=== PATIENT | female | born 1980 | race Caucasian/White ===

== ENCOUNTER 2019-06-28 16:19 | Observation (INO) ==
[2019-06-28 16:48] LABS: BILIRUBIN URINE NEGATIVE (NEGATIVE); BLOOD URINE 3+ (NEGATIVE); GLUCOSE URINE NEGATIVE (NEGATIVE); KETONE URINE 3+(Large) mg/dL (NEGATIVE); LEUKOCYTES URINE TRACE (NEGATIVE); NITRITE URINE NEGATIVE (NEGATIVE); PROTEIN URINE TRACE mg/dL (NEGATIVE); UROBILINOGEN URINE 1 mg/dL
[2019-06-28 16:49] LABS: CLARITY CLEAR (CLEAR); COLOR YELLOW
[2019-06-28 16:54] LABS: URINE SOURCE CLEAN CATCH
[2019-06-28 17:01] LABS: URINE BACTERIA 1+ /HFP; URINE CAST NONE SEEN /LPF; URINE CRYSTAL NONE SEEN /HPF; URINE EPITHELIAL CELLS >10 /HPF (<10); URINE YEAST PRESENT /HPF
[2019-06-28 18:08] LABS: BASO# 0.01 X1000 (0.0-0.2); BASO% 0.1 % (0.0-0.8); HEMATOCRIT 40.8 % (37.0-47.0); HEMOGLOBIN 13.1 g/dL (12.0-16.0); IMM GRAN# 0.02 X1000 (0.0-0.04); IMM GRAN% 0.2 % (0.0-0.5); LYMPH# 1.11 X1000 (1.2-3.4); LYMPH% 9.5 % (20.5-51.1); MCH 29.4 PG (27-31); MCHC 32.1 g/dL (33-37); MCV 91.5 FL (81-99); MONO# 2.37 X1000 (0.11-0.59); MONO% 20.2 % (1.7-9.3); MPV 11.5 FL (7.4-10.4); PLT 174 X1000 (130-400); RBC 4.46 XMIL (4.2-5.4); RDW 14.3 % (11.5-14.5); WBC 11.71 X1000 (4.8-10.8)
[2019-06-28 18:20] LABS: AGAP 12; ALBUMIN 3.9 g/dL (3.5-5.0); ALKALINE PHOSPHATASE 62 U/L (32-104); BUN 9 mg/dL (8-22); CALCIUM 8.1 mg/dL (8.8-10.2); CHLORIDE 101 mmol/L (98-107); COSMO 273; CREATININE 0.6 mg/dL (0.5-0.9); ESTIMATED GFR > 60; GLUCOSE 101 mg/dL (70-104); GOT 27 U/L (10-30); GPT 27 U/L (10-36); POTASSIUM 4.1 mmol/L (3.5-5.1); SODIUM 137 mmol/L (136-145); TCO2 25 mmol/L (25-35)
--- NOTE | 2019-06-28 19:01 | Diag Imaging Result Doc PS360 ---
CT ABD/PELVIS W/IV CONT ONLY - 06/28/2019 INDICATION: flank pain COMPARISON: None FINDINGS: The lung bases are clear and the heart size is normal. There are gastric bypass changes. There are extensive heterogeneous enhancement abnormalities of the right kidney. No radiodense renal stone or urinary obstruction. There is a small amount of pelvic free fluid. No bowel obstruction or inflammation. Normal appendix. Uterus is absent. Urinary bladder and rectum are normal. Bony structures are intact and well mineralized. IMPRESSION: Pyelonephritis of the right kidney. Trace pelvic free fluid, presumably physiologic. This exam was performed using automated exposure control, adjustment of mA or kV according to patient size, and/or use of iterative reconstruction technique Electronically signed by Renny Wolff 06/28/2019 6:58 PM
[2019-06-28] MEDS ORDERED: MORPHINE IV ONE (19:17)
[2019-06-28] MEDS ORDERED: NS 1,000 ML IV ONE (19:20)
--- NOTE | 2019-06-28 19:24 | PROVIDER DOCUMENTATION ---
This chart was entered by Kristan Pulliam Scribe, acting as scribe for Param Dave CRNP. HPI-Female /OB/Breast - General Chief Complaint: Back Pain Stated Complaint: FEVER / FLANK PAIN / BACK PAIN Time Seen by Provider: 06/28/19 17:08 Source: reports: patient Allergies/Adverse Reactions: Patient Allergies Allergy/AdvReac Type Severity Reaction Status Date / Time codeine Allergy VOMITING Verified 12/28/17 09:32 Home Medications: Home Medication List Medication Instructions Recorded Confirmed Last Taken Type Bupropion [Wellbutrin] 75 mg PO DAILY 12/28/17 06/28/19 Unknown History Escitalopram Oxalate [Lexapro] 20 mg PO DAILY 12/28/17 06/28/19 Unknown History Levothyroxine [Synthroid] 125 microgm PO DAILY 12/28/17 06/28/19 Unknown History - History of Present Illness-Female /OB Nature of Presenting Problem: pt is a 38 yof c/o rt flank pain and fever of 101 last night. pt sts was seen at urgent care yesterday, given antibiotic shot and amoxicillin, dx w/pyelonephritis. pt sts called urgent care back today and was told to come to er b/c she was not supposed to be running a fever. denies nvd, chills and urinary symptoms. pt does not menstruate Location of complaint: reports: right flank Radiation: reports: none Review of Systems - Adult - REVIEW OF SYSTEMS - ADULT Constitutional: reports: see HPI, fever. denies: chills, fatique, night sweats Eyes: reports: no symptoms reported Ears, Nose, Mouth & Throat: reports: no symptoms reported Cardiovascular: reports: no symptoms reported. denies: chest pain, edema, orthopnea Respiratory: reports: no symptoms reported. denies: dyspnea on exertion, shortness of breath, wheezing Gastrointestinal: reports: no symptoms reported Genitourinary: reports: see HPI, flank pain. denies: dysuria, discharge, frequency, incontinence Musculoskeletal: reports: no symptoms reported Integumentary: reports: no symptoms reported Neurological: reports: no symptoms reported Psychiatric: reports: no symptoms reported Endocrine: reports: no symptoms reported Hematologic/Lymphatic: reports: no symptoms reported Allergic/Immunologic: reports: no symptoms reported All Other Systems: Reviewed and Negative Past History - Adult - PAST MEDICAL HISTORY-ADULT Review of Records: reports: Old Records Reviewed, Nursing Assessment Review, Medications Reviewed, Social history reviewed & non-contributory. Major Childhood Illnesses: reports: denies history Cardiovascular: reports: denies history Respiratory: reports: denies history Gastrointestinal: reports: denies history Obstetrical/Gynecological: reports: denies history Genitourinary: reports: denies history Musculoskeletal: reports: denies history Neurological: reports: denies history Endocrine/Immune: reports: thyroid disorder Other Conditions: reports: other (hypocalcemia) - PRIOR SURGERIES/PROCEDURES Surgical/Procedure History: reports: other (thyroidectomy) - IMMUNIZATION STATUS Childhood Immunizations: See Nurse Assessment Flu Vaccine: See Nurse Assessment - FAMILY HISTORY Family History: reviewed, not pertinent - SOCIAL HISTORY Smoking: cigarettes, greater than 1 pack/day Provider spent 3-5 mins advising pt. on dangers of tobacco.: Discussed manners to quit use, and f/u contacts for add'l counseling. Substance Use: none/never Physical Exam-General - PHYSICAL EXAM-ADULT Initial Vital Signs Reviewed: Yes - CONSTITUTIONAL General Appearance: appears well, alert, no apparent distress. negative: lethargic, slow to respond, obtunded - EYES Eyes: PERRL/EOMI, pink conjunctivae - HEAD, EARS, NOSE, MOUTH & THROAT HENMT: normocephalic/atraumatic, moist mucous membranes, normal ENT inspection - NECK Neck: non-tender, full range of motion, supple, normal inspection - RESPIRATORY Respiratory: chest non-tender, lungs clear, normal breath sounds - CARDIOVASCULAR Cardiovascular: normal peripheral pulses, regular rate, rhythm - GASTROINTESTINAL (ABDOMEN) Abdominal Exam: normal bowel sounds, non tender, soft - LYMPHATIC Lymphatic: no adenopathy - MUSCULOSKELETAL Back Exam: normal inspection, no vertebral tenderness, CVA tenderness (bilat, rt worse than left). negative: no CVA tenderness, muscle spasm, swelling, vertebral tenderness Extremity: normal range of motion, non-tender, normal inspection Peripheral Pulses: radial (R): 2+, radial (L): 2+ - SKIN Integumentary: normal color, normal turgor, warm/dry - NEUROLOGIC Neurologic: grossly normal, no motor/sensory deficits - PSYCHIATRIC Psych/Mental Status: normal mood/affect, normal thought content, normal thought process, oriented x 3 Progress - PLAN OF CARE/RESULTS Progress/Plan/Lab Results: Vital Signs - 8 hr 09/08/19 16:25 06/28/19 18:00 Temperature 99.8 F H 100.3 F H Pulse Rate 106 H Respiratory Rate 18 Blood Pressure 133/78 O2 Sat by Pulse Oximetry 99 Laboratory Results - last 24 hr 06/28/19 06/28/19 06/28/19 16:33 17:50 17:50 WBC 11.71 H RBC 4.46 Hgb 13.1 Hct 40.8 MCV 91.5 MCH 29.4 MCHC 32.1 L RDW Std Deviation 14.3 Plt Count 174 MPV 11.5 H Immature Gran % (Auto) 0.2 Neut % (Auto) 70.0 Lymph % (Auto) 9.5 L [place] % (Auto) 20.2 H Eos % (Auto) 0.0 Baso % (Auto) 0.1 Immature Gran # (Auto) 0.02 Neut # (Auto) 8.20 H Lymph # (Auto) 1.11 L [place] # (Auto) 2.37 H Eos # (Auto) 0.00 Baso # (Auto) 0.01 Segmented Neutrophils Not Reportable Sodium 137 Potassium 4.1 Chloride 101 Carbon Dioxide 25 Anion Gap 12 BUN 9 Creatinine 0.6 Estimated GFR/1.73 m2 > 60 BUN/Creatinine Ratio 15 Glucose 101 Calculated Osmolality 273 Calcium 8.1 L Total Bilirubin 0.20 AST 27 ALT 27 Alkaline Phosphatase 62 Total Protein 7.0 Albumin 3.9 Globulin 3.0 Albumin/Globulin Ratio 1.0 Urine Source CLEAN CATCH Urine Color YELLOW Urine Clarity CLEAR Urine pH 5.0 Ur Specific [place] 1.020 Urine Protein TRACE A Urine Ketones 3+(Large) A Urine Blood 3+ A Urine Nitrite NEGATIVE Urine Bilirubin NEGATIVE Urine Urobilinogen 1 Urine Microscopic RBC 10-20 A Urine WBC TRACE A Urine Microscopic WBC 10-20 A Ur Epithelial Cells >10 A Urine Crystals NONE SEEN Urine Bacteria 1+ Urine Casts NONE SEEN Urine Yeast PRESENT Urine Glucose NEGATIVE Orders Category Date Time Status Admit - [facility] Routine AdmDCTranf 06/28/19 19:17 Active Activity - Up Ad Juliet ORDERED Care 06/28/19 19:17 Active Resuscitation Status Routine Care 06/28/19 19:17 Ordered Vital Signs Order ROUTINE Care 06/28/19 19:17 Active Regular Diet Diet 06/28/19 19:[address] ABD/PELVIS W/IV CONT ONLY [CT] Stat Exams 06/28/19 17:31 Completed CBC WITH ELECTRONIC DIFF [HEME] Stat Lab 06/28/19 17:50 Completed COMPREHENSIVE METABOLIC PANEL [CHEM] Stat Lab 06/28/19 17:[address] W/POSS RFLX CULT [URINALYSIS] Stat Lab 06/28/19 16:33 Completed URINE CULTURE [RM] Routine Lab 06/28/19 17:01 Ordered 0.9% Sodium Chloride Inj [Ns] 1,000 ml Med 06/28/19 19:20 Active IV 125 mls/hr Cefazolin 1 gm/D5w [Kefzol 1 gm/D5w] Med 06/28/19 19:30 Ordered 1 gm in 50 ml IV Q8H Morphine Med 06/28/19 19:17 Discontinued 4 mg IV NOW ONE Morphine Med 06/28/19 19:17 Ordered 4 mg IV Q2H PRN PRN Transfer/Admit Order [TRANSFER] Routine Transfer 06/28/19 19:21 Ordered Result Diagrams: 06/28/19 17:50 06/28/19 17:50 - REASSESSMENT Reassessment #1 Time Reassessed: 19:22 Status: unchanged (pain 7-10) - CONSULTS/PCP/HOSPITALIST Notification #1 *Consult/PCP/Hospitalist*: Dr Pires Time Discussed: 19:23 Reason/Comments: pyelonephritis Consult Disposition: Admit Departure - Departure Date of Disposition Decision: 06/28/19 Time of Disposition Decision: 19:24 DIAGNOSIS: Pyelonephritis Disposition: ADMITTED INPATIENT 09 Certified Medical Emergency: Emergent Condition: Critical Additional Freetext Instructions: ED Follow Up Instructions: You have been treated by a care provider in the Emergency Department. These instructions are being provided to you so you can have an understanding of how to care for yourself upon discharge. Upon discharge from the Emergency Department, you are responsible for making arrangements for follow-up care by a physician of your choice. Take all prescribed medications as directed. Return to the Emergency Department immediately for any new or worsening symptoms. You may call the Physician Referral phone number at [phone] to obtain a list of Physicians who are taking new patients. Referrals and Follow-Ups: Charlie Pires MD [Primary Care Provider] - - Critical Care Note This patient required my direct & personal management of CC.: No Attestation - Physician/ NAOMY Attestation Patient care was provided by Advanced Practice Provider:: Yes Advanced Practice Provider:: Param Dave Advanced Practice Provider documentation review:: The Mid-level provider documentation, treatment plan and medical decision making was reviewed by the physician who agrees with all treatment and medical decision making by the MLP. The physician spent face to face time with patient:: No Advanced Practice Provider documentation review:: Supervising physician onsite and consulted in the evaluation and care of this patient. The physician did not have a face to face encounter with the patient. This chart was documented by the indicated scribe, (Kristan Pulliam Scribe) and accurately reflects the services I performed and decisions made by me, Param Starr CRNP, as attested by the provider's signature.
[2019-06-28] MEDS: KEFZOL 1 GM/D5W 1 GM/50 ML IVPB IV SCH (19:40)
[2019-06-28] MEDS: MORPHINE IV PRN (22:41)
[2019-06-29] MEDS: KEFZOL 1 GM/D5W 1 GM/50 ML IVPB IV SCH ×3 (03:08→19:59)
[2019-06-29] MEDS: MORPHINE IV PRN (03:26)
[2019-06-29] MEDS ORDERED: SYNTHROID PO SCH ×2 (07:15→09:30)
[2019-06-29] MEDS: SYNTHROID PO SCH ×3 (08:36→10:41)
[2019-06-29] MEDS: LEXAPRO PO SCH (08:36)
--- NOTE | 2019-06-29 10:09 | HISTORY AND PHYSICAL ---
PRIMARY CARE PHYSICIAN: Dr. Charlie Pires. CHIEF COMPLAINT: Fever of 101 to 102, bilateral flank pain, had been diagnosed with pyelonephritis on Saturday at a walk-in clinic. HISTORY OF PRESENTING ILLNESS: This is a 38-year-old, female who presents to [facility] ER with complaints of bilateral flank pain, a fever of 101 to 102. States she had been seen at a walk-in clinic on Saturday and diagnosed with pyelonephritis. Given an antibiotic shot and p.o. antibiotics. Began taking them and woke up Saturday morning with a fever of 102. She called the walk-in clinic and they recommended she come to the emergency room for evaluation. When she arrived to the emergency room, her temperature was 99.8 degrees. She had bilateral flank pain. Her urinalysis showed negative nitrites, trace white blood cells, 1+ bacteria. Her white blood cell count was 11.71. We did a CT of the abdomen and pelvis that showed pyelonephritis of the right kidney so she was admitted for further evaluation and treatment. PAST MEDICAL HISTORY: Hypothyroidism and depression. PAST SURGICAL HISTORY: Thyroidectomy, hysterectomy, and gastric bypass. FAMILY HISTORY: Reviewed and noncontributory. SOCIAL HISTORY: She currently lives with family. Smokes a half a pack of cigarettes a day and has done so for 19 years. Denied any alcohol or illicit drug use. ALLERGIES: Codeine and Levaquin. HOME MEDICATIONS: She takes Wellbutrin 75 mg p.o. daily, Synthroid 175 mcg p.o. daily, and Lexapro 20 mg p.o. daily. LABORATORY DATA: Showed a white blood cell count of 11.71, hemoglobin 13.1, hematocrit 40.8, platelets 174,000. Sodium 137, potassium 4.1, chloride 101, CO2 of 25, BUN of 9, creatinine 0.6, glucose 101. Urinalysis with negative nitrites, trace white blood cells, 1+ bacteria. CT of the abdomen and pelvis showed pyelonephritis of the right kidney, trace pelvic free fluid, presumably physiologic. REVIEW OF SYSTEMS: She was positive for fever, chills. Denied any blurred vision, dizziness, chest pain, coughing, shortness of breath. Denied any abdominal pain but had bilateral flank pain, worse on the right. Denied any nausea, vomiting, constipation, diarrhea, or burning or hurting with urination, and no hematuria noted. PHYSICAL EXAMINATION: VITAL SIGNS: On arrival, she had a temperature of 99.8 degrees, pulse 106, respirations 18, blood pressure 133/78, saturating 99% on room air. GENERAL: This is a 38-year-old, female who is lying in the bed and answers questions appropriately. HEENT: Normocephalic, atraumatic. Normal ENT inspection. Oropharynx and nares are clear. Eyes: Pupils are equal, round, and reactive to light and accommodation. Extraocular movements are intact. NECK: Normal inspection. Normal range of motion. LUNGS: Clear to auscultation bilaterally with equal lung expansion and chest wall movement. HEART: With regular rate and rhythm. No murmurs, rubs, or gallops. ABDOMEN: Soft, nontender. She does have bilateral CVA tenderness. Bowel sounds are present x4 quadrants. MUSCULOSKELETAL: She had 5/5 strength x4 extremities. NEUROLOGICAL: The cranial nerves 2-12 appear grossly intact. ASSESSMENT: 1. Right pyelonephritis. 2. Hypothyroidism. 3. Tobacco abuse. PLAN: She was admitted to the medical unit, placed on a regular diet, placed on cefazolin 1 g IV q.8, morphine 4 mg IV q.2 hours p.r.n., normal saline at 125 mL an hour. We will recheck a CBC and BMP in the a.m. Further orders after being seen by attending. Dictated by BLANCA South for Charlie Pires MD cc: BLANCA South MD
[2019-06-29] MEDS: WELLBUTRIN PO SCH (10:42)
[2019-06-29] MEDS: NS 1,000 ML IV SCH ×2 (10:44→20:00)
[2019-06-29] MEDS ORDERED: NICODERM PATCH TD PRN (21:29)
[2019-06-30] MEDS: NS 1,000 ML IV SCH (03:58)
[2019-06-30] MEDS: KEFZOL 1 GM/D5W 1 GM/50 ML IVPB IV SCH (03:58)
[2019-06-30 05:14] VITALS: BP 100/54
[2019-06-30] MEDS: SYNTHROID PO SCH ×2 (06:08)
[2019-06-30 06:37] LABS: AGAP 9; BUN 6 mg/dL (8-22); CALCIUM 7.2 mg/dL (8.8-10.2); CHLORIDE 108 mmol/L (98-107); COSMO 282; CREATININE 0.5 mg/dL (0.5-0.9); ESTIMATED GFR > 60; GLUCOSE 89 mg/dL (70-104); POTASSIUM 4.2 mmol/L (3.5-5.1); SODIUM 143 mmol/L (136-145); TCO2 27 mmol/L (25-35)
--- NOTE | 2019-06-30 06:50 | HISTORY AND PHYSICAL ---
ADDENDUM: The patient presented to the hospital with nausea, vomiting, abdominal pain, and flank pain. She was diagnosed with pyelonephritis. We are going to admit her to the hospital with IV fluids, antibiotics, pain control and will follow. Hopefully, she will improve quickly and will only have to stay in the hospital a day or two. cc: Charlie Pires MD
[2019-06-30 06:52] LABS: BASO# 0.01 X1000 (0.0-0.2); BASO% 0.1 % (0.0-0.8); HEMATOCRIT 34.8 % (37.0-47.0); HEMOGLOBIN 10.7 g/dL (12.0-16.0); IMM GRAN# 0.02 X1000 (0.0-0.04); IMM GRAN% 0.2 % (0.0-0.5); LYMPH# 1.76 X1000 (1.2-3.4); LYMPH% 21.8 % (20.5-51.1); MCH 28.5 PG (27-31); MCHC 30.7 g/dL (33-37); MCV 92.8 FL (81-99); MONO# 1.43 X1000 (0.11-0.59); MONO% 17.7 % (1.7-9.3); NEUT# 4.84 X1000 (1.4-6.5); NEUT% 60.2 % (42.2-75.2); PLT 178 X1000 (130-400); RBC 3.75 XMIL (4.2-5.4); RDW 14.5 % (11.5-14.5); WBC 8.06 X1000 (4.8-10.8)
[2019-06-30] MEDS: LEXAPRO PO SCH ×2 (07:51→10:41)
[2019-06-30] MEDS: WELLBUTRIN PO SCH ×2 (07:52→10:42)
--- NOTE | 2019-07-03 19:03 | DISCHARGE SUMMARY ---
ADMISSION DATE: 06/28/2019 DISCHARGE DATE: 06/30/2019 DISCHARGE DIAGNOSES: 1. Pyelonephritis, resolved. 2. Flank pain, resolved. 3. Nausea and vomiting, resolved. 4. Fever, resolved. 5. Hypothyroidism. 6. Depression. CONSULTATIONS: None. PROCEDURES: None. BRIEF HOSPITAL COURSE: The patient is a 38-year-old female who presented to the hospital with nausea, vomiting, and abdominal pain. She was having right-sided flank pain, diagnosed with right- sided pyelonephritis. Thankfully, she had an uneventful hospital course. She was placed on antibiotics, IV fluids. On discharge, her symptoms have not completely resolved, but they are tremendously better. Her nausea and vomiting resolved. Her flank pain is minimally present and therefore she will be discharged home. DISPOSITION: Patient will be discharged home. She will follow up outpatient with treatment facility of choice. Discussed with patient that she does need to stop smoking. She will call the office back if symptoms worsen or return. Greater than 30 minutes was spent in total care. cc: Charlie Pires MD
--- NOTE | 2019-07-05 03:40 | DISCHARGE SUMMARY ---
ADMISSION DATE: 06/28/2019 DISCHARGE DATE: 06/30/2019 DISCHARGE DIAGNOSES: 1. Pyelonephritis. 2. Hypothyroidism. 3. Chronic tobacco abuse. CONSULTATIONS: None. PROCEDURES: None. BRIEF HOSPITAL COURSE: The patient is a 38-year-old female who presented to the hospital with fevers, chills, and flank pain. Diagnosed with pyelonephritis. Was placed on antibiotics, IV fluids, pain control. Thankfully, she had an uneventful hospital course. DISPOSITION: Patient will be discharged home. She will follow up outpatient with treatment facility of choice. She will continue antibiotics for a total of 7 days. Again discussed with patient the perils of smoking as well as reasons and ways to stop. Greater than 30 minutes was spent in total care. cc: Charlie Pires MD
== END 2019-06-30 11:07 | disposition home or self-care (01) ==
LOC: P.ED 16:19 → INTOOBSV 20:54 → SUATTDRO 20:54 → P.EDIPHOLD 20:54 → P.MEDSURG 23:05
PROVIDERS: ADMIT Family Medicine; ATTEND Internal Medicine